=== PATIENT | female | born 1955 | race Caucasian/White ===

== ENCOUNTER 2024-02-04 10:30 | Outpatient (AMB) | payer MEDICARE, SELFPAY ==
--- NOTE | 2024-02-04 10:40 | MHC.OFFWIV ---
Intake Vital Signs 02/04/24 10:55 Height 4 ft 9 in Weight 101 lb 8 oz BMI 22.0 BP 112/66 Blood Pressure Location Lt brachial Position Sitting Pulse 83 Pulse Source Pulse Oximeter Temp 98.1 F Temp Source Oral Pulse Oximetry (%) 94 Oxygen Delivery Method Room Air Intake Visit Reasons: [employer] Rt foot swollen/pain Intake Note: Pt is here today for rt toe swelling noticed 1 wk ago Patient Tobacco Use Status: Former Tobacco user Allergies No Known Allergies [No Known Allergies*] Allergy (Verified 02/04/24 10:56) Do you need a note to return to daycare/school/sports/work: No HPI HPI Comments History of Present Illness Details Patient is a 68-year-old female complaining of right toe pain x1 week. She states the pain is getting worse over time and worse when she wears shoes or something touches it; she states she did have gout once and it resolved with prednisone. She denies fevers. PFSH Social History Patient Tobacco Use Status: Former Tobacco user Review of Systems Const All systems reviewed & are unremarkable except as noted in HPI and below Physical Exam Vital Signs: Last Vital Signs Temp 98.1 F 02/04/24 10:55 Pulse 83 02/04/24 10:55 BP 112/66 02/04/24 10:55 Pulse Ox 94 02/04/24 10:55 Oxygen Delivery Method Room Air 02/04/24 10:55 BMI result Body Mass Index 22.0 Const General: cooperative, healthy appearing, comfortable and no acute distress Orientation/consciousness: patient oriented x3 Limitations: no limitations HEENT Head: Yes normal to inspection Eyes General: appearance normal, both eyes and all related structures Resp Effort & Inspection: normal respiratory effort and able to speak in complete sentences Neuro General: patient oriented x3 Extrem Right lower extremity: foot (Right 4th toe, extremely swollen, erythematous and tender, NVI intact) Details: normal capillary refill, toes with normal ROM, vascular exam Details: dorsalis pedis pulse present and posterior tibial pulse present and motor-sensory exam Details: light-touch normal Assessment & Plan Assessment & Plan (1) Gout: Code(s): M10.9 - Gout, unspecified Qualifiers: Gout site: toe Gout etiology: unspecified cause Chronicity: acute Laterality: right Qualified Code(s): M10.9 - Gout, unspecified Plan: Gave patient 1st dose of 40 mg prednisone in office and then send prescription for remaining 4 days. Plan see above Orders: Orders AMB Prednisone Adult Dose Today M10.9 - Gout, unspecified Medications: New prednisone 20 mg PO DAILY 8 tabs 0RF prednisone 20 mg PO ONCE 2 tabs 0RF M10.9 - Gout, unspecified Coding Level of Care Code Est Pt Level 3 (51008) Diagnoses Acute gout involving toe of right foot, unspecified cause M10.9 Gout site: toe Gout etiology: unspecified cause Chronicity: acute Laterality: right
[2024-02-04 10:55] VITALS: BP 112/66; PULSE 83; TEMP 36.7; O2SAT 94; BMI 22.0
== END 2024-02-04 12:21 | disposition home or self-care (01) ==
PROVIDERS: PCP Internal Medicine; Visit Provider Physician Assistant
DX: M10.9 Gout, unspecified (principal)
CPT/HCPCS: 99213